=== PATIENT | female | born 1960 | race Hispanic/Latino ===

== ENCOUNTER 2021-11-21 08:34 | Emergency (ER) | payer OTHER | END 2021-11-21 09:04 | disposition home or self-care (01) | LOC: NAV ERS 08:34 | DX: I87.2 Venous insufficiency (chronic) (peripheral) (principal); G89.29 Other chronic pain; M54.50 Low back pain, unspecified; M25.551 Pain in right hip; I10 Essential (primary) hypertension; E78.00 Pure hypercholesterolemia, unspecified; Z79.899 Other long term (current) drug therapy | CPT/HCPCS: 99283 ==

== ENCOUNTER 2023-11-18 10:35 | Outpatient (CLI) | payer MEDICAID | END 2023-11-18 10:36 | disposition home or self-care (01) | LOC: NAV RAD 10:35 | PROVIDERS: ATTEND Nurse Practitioner Family | DX: M25.572 Pain in left ankle and joints of left foot (principal) ==